=== PATIENT | male | born 1945 | race Caucasian/White ===

== ENCOUNTER 2021-12-22 19:01 | Emergency (ER) | payer OTHER, SELFPAY ==
[2021-12-22 19:05] VITALS: TEMP 36.1; BMI 28.1
--- NOTE | 2021-12-22 19:05 | ED.VIS.CHEST ---
HPI History of Present Illness Chief Complaint: CPR Informant: EMS Onset/Context/Timing Onset: Today Activity at onset: sudden Timing: Continuous Current Severity: Severe Maximum Severity: Severe Narrative Narrative: 76-year-old male V. fib arrest approximately 40 minutes ago. Jennifer was called to the home and gave him his first epinephrine 34 minutes ago. They placed an eye gel for an airway. He has been down the entire time with no blood pressure vital signs. They have been doing compressions the entire time using the auto device. He does have a extensive history of a prior CABG about 8 years ago and an aortic valve surgery. Rest of history is limited at this time his family is not available as of yet. Prior Similar Symptoms: No Recent Illness/Hospitalization: No ROS ROS ED ROS Narrative Unknown due to the patient is unresponsive. Review of Systems ROS Unobtainable: other Details: Positive. EXAM Physical Exam Narrative Exam Narrative: 76-year-old male. Automatic CPR device is in place. I gels in place. When the compression device was turned off the patient had asystole. He has no spontaneous movements. No spontaneous breathing. His pupils are fixed at about 3 mm bilaterally. He is completely unresponsive. And he has no palpable femoral, radial or carotid pulses. Patient was pronounced at 7:03 PM. Const Vital Signs: Unresponsive without a pulse. Positive well nourished and well developed; Negative for cachectic, contractures or unkempt General Appearance ED: well developed and pallor; Negative for unkempt, cachectic or contractures Nutritional Appearance: Negative for cachectic HEENT Reports moist mucous membranes normocephalic and atraumatic Eyes Eyes Narrative: Pupils 3 mm and fixed bilaterally. No response to light. Neck no lymphadenopathy, supple and no JVD General: Negative for tenderness Chest Wall inspection of chest normal; Negative for palpation of chest normal Chest Narrative: Indentation on his sternum from the automatic CPR device. Resp Resp Narrative: Clear with bagging. Equal symmetrical. No spontaneous respiratory activity on his own. Cardio Rate: other Other Details: Asystole on the monitor. GI normal to inspection, nondistended, normoactive bowel sounds, soft to palpation, non-tender, non-distended and no masses Psych Psych Narrative: Unresponsive. Appearance: Negative for unkempt Skin no rashes or lesions noted and no wounds General Skin Exam: pallor; Negative for jaundice Rashes: No rashes noted MDM MDM MDM Narrative Medical decision making narrative: 76-year-old male who had a V. fib arrest. Downtime around 40 minutes. Did not respond to around 5 rounds of epinephrine and 5-7 attempts at defibrillation. Patient was pronounced at 070 3 PM. Discharge Plan Triage Chief Complaint: CPR ED Provider: José Luis Houston Dx/Rx/DC Orders Clinical Impression: Cardiac arrest with ventricular fibrillation, History of coronary artery disease, Hx of CABG, Patient pronounced Disposition Disposition:
== END 2021-12-22 21:58 ==
PROVIDERS: Emergency Provider Emergency Medicine; PCP Family Medicine; Visit Provider Emergency Medicine
DX: I49.01 Ventricular fibrillation (principal); I25.10 Atherosclerotic heart disease of native coronary artery without angina pectoris; Z95.1 Presence of aortocoronary bypass graft
CPT/HCPCS: 99281